=== PATIENT | female | born 1975 | race African-American/Black ===

== ENCOUNTER 2016-12-04 12:18 | Emergency (ER) | payer MEDICAID ==
[~2016-12-04] VITALS: Wt 70.3 kg
[~2016-12-04 12:18] MED LIST: AMOXICILLIN500 MG PO; Amitriptyline H10 MG PO; BENTYL10 MG PO; BETIMOL 10 ML10 M1 OP; BLOCADREN5 MG PO; CELEBREX200 MG PO; CIPRO T; CIPROFLOXACIN500 MG PO; CLEOCIN HCL150 MG PO; CLEOCIN150 MG PO; CLONAZEPAM0.5 M1 PO; CYMBALTA30 MG PO; DAYPRO600 M1 PO; DOXYCYCLINE HY100 M3 PO; DOXYCYCLINE100 MG PO; FLAGYL500 MG PO; FLEXERIL10 MG PO; HYDROCODONE BIT1 T11 PO; LAMICTAL ODT50 MG MM; LIDODERM5% TP; LOMOTIL 0.025 M1 TAB PO; MEDROL DOSEPAK4 MG PO; METHADONE5 MG PO; MOTRIN800 MG PO; MS CONTIN30 MG PO; NEURONTIN300 MG PO; NEURONTIN600 MG PO; NORCO 325 MG-51 TAB PO; NORCO 7.5-3251 EACH PO; NUCYNTA100 MG PO; PAXIL CR25 MG PO; PAXIL20 MG PO; PERCOCET 325 MG1 TA5 PO; PREDNISONE10 MG PO; PRILOSEC20 MG PO; PROAIR HFA8.5 GM INH; TIMOLOL MALEATE5 MG PO; VICODIN 500 MG-1 TAB PO; VICODIN ES 7501 TA1 PO; VICODIN ES 7501 TAB PO; VICODIN1 TAB PO; VITAMIN D2000 IU PO; VOLTAREN11 TP; Vicodin 5/500 505 MG PO; ZOFRAN ODT8 MG PO
[2016-12-04] MEDS ORDERED: BACLOFEN20 M1 PO (12:24)
[2016-12-04] MEDS ORDERED: NEURONTIN100 MG PO (12:24)
[2016-12-04 12:29] VITALS: BP 129/93
[2016-12-04 13:26] LABS: BASO % 0.2 % (0.0-1.0); EOS # 0.1 10*3/uL (0.0-0.4); EOS % 0.7 % (1.0-4.0); IG # 0.1 10*3/uL (0.0-0.1); LYMPH # 3.8 10*3/uL (1.3-4.4); LYMPH % 31.3 % (27.0-41.0); MEAN CELL VOLUME 83.5 fl (81.0-99.0); MEAN CORPUSCULAR HGB 27.8 pg (27.0-31.0); MEAN CORPUSCULAR HGB CONC 33.3 g/dl (33.0-37.0); MEAN PLATELET VOLUME 8.8 fl (9.6-12.3); MONO # 0.7 10*3/uL (0.1-1.0); MONO % 5.9 % (3.0-9.0); NEUT # 7.5 10*3/uL (2.3-7.9); NEUT % 61.5 % (47.0-73.0); PLATELET COUNT AUTOMATED 338 10*3/uL (130-400); RED BLOOD COUNT 5.75 10*6/uL (4.10-5.10); RED CELL DISTRI WIDTH 13.1 % (0-14.5); WHITE BLOOD COUNT 12.2 10*3/uL (4.8-10.8)
[2016-12-04 13:38] LABS: BUN 9 mg/dl (7-24); CARBON DIOXIDE 26 mmol/L (21-32); CHLORIDE 100 mmol/L (98-107); EST GLOM FILT AFRICAN AMERICAN > 60 ml/min; GLUCOSE 121 mg/dL (65-99); POTASSIUM 3.4 mmol/L (3.5-5.1); SODIUM 135 mmol/L (136-145)
[2016-12-04 14:07] LABS: BILIRUBIN NEGATIVE (NEGATIVE); BLOOD TRACE-INTACT (NEGATIVE); CLARITY CLEAR (CLEAR); COLOR YELLOW (YELLOW); GLUCOSE NEGATIVE (NEGATIVE); KETONE NEGATIVE (NEGATIVE); LEUKO ESTERASE NEGATIVE (NEGATIVE); NITRITE NEGATIVE (NEGATIVE); PROTEIN NEGATIVE (NEGATIVE); SPECIFIC GRAVITY <= 1.005 (1.005-1.030); UROBILINOGEN 0.2 E.U./dl (0.2-1.0)
[2016-12-04 14:16] LABS: URINE AMPHETAMINES < 1000 (1000ng/ml); URINE BARBITURATES < 200 (200ng/ml); URINE COCAINE < 300 (300ng/ml)
[2016-12-04 14:29] LABS: RBC 0-2 rbc/hpf (0-2); URINE REFLEX COMMENT NO (NO); WBC 0-2 wbc/hpf (0-5)
== END 2016-12-04 21:40 | disposition short-term general hospital (02) ==
LOC: ED 12:18
PROVIDERS: Registered Nurse
DX: R45.851 Suicidal ideations (principal); Z79.899 Other long term (current) drug therapy; F17.200 Nicotine dependence, unspecified, uncomplicated; Z88.2 Allergy status to sulfonamides

== ENCOUNTER → 2016-12-16 | Outpatient (CLI) | payer MEDICAID ==
[~2016-12-16] MED LIST changes: +BACLOFEN20 M1 PO; +NEURONTIN100 MG PO
[2016-12-16 12:16] LABS: HEMATOCRIT 39.9 % (37.0-47.0); HEMOGLOBIN 13.2 g/dl (12.0-16.0); MEAN CELL VOLUME 84.5 fl (81.0-99.0); MEAN CORPUSCULAR HGB CONC 33.1 g/dl (33.0-37.0); MEAN PLATELET VOLUME 9.2 fl (9.6-12.3); NUCLEATED RED BLOOD CELL 0.1 % (0.0-0.0); PLATELET COUNT AUTOMATED 315 10*3/uL (130-400); RED BLOOD COUNT 4.72 10*6/uL (4.10-5.10); RED CELL DISTRI WIDTH 13.2 % (0-14.5); WHITE BLOOD COUNT 14.9 10*3/uL (4.8-10.8)
[2016-12-16 12:40] LABS: ALBUMIN 3.4 gm/dl (3.1-4.5); ALKALINE PHOSPHATASE 75 U/L (45-117); BILIRUBIN, TOTAL 0.2 mg/dl (0.2-1.0); BUN 11 mg/dl (7-24); CARBON DIOXIDE 24 mmol/L (21-32); CHLORIDE 106 mmol/L (98-107); CHOLESTEROL 165 mg/dL (<200); EST GLOM FILT AFRICAN AMERICAN > 60 ml/min; GLUCOSE 97 mg/dL (65-99); HDL CHOLESTEROL 63 mg/dl (40-60); LDL CHOLESTEROL 72 mg/dL (9-159); SGOT/AST 9 IU/L (3-35); SGPT/ALT 18 U/L (12-78); SODIUM 141 mmol/L (136-145); TOTAL PROTEIN 6.8 gm/dL (6.4-8.2); TRIGLYCERIDES 148 mg/dl (<150); VLDL CHOLESTEROL 30 mg/dL (6-40)
[2016-12-16 12:45] LABS: LYMPHOCYTE # 3.7 10*3/uL (1.3-4.4); METAMYELOCYTES 1 % (0-0); MONOCYTE # 0.3 10*3/uL (0.1-1.0); MYELOCYTES 1 % (0-0); NEUTROPHIL # 10.6 10*3/uL (2.3-7.9); NEUTROPHILS 71 % (47-73); TOTAL CELLS COUNTED 100 #CELLS
[2016-12-16 12:46] LABS: PLATELET SUFFICIENCY NORMAL (NORMAL)
== END | disposition home or self-care (01) ==
LOC: LAB 11:15
PROVIDERS: Internal Medicine
DX: I10 Essential (primary) hypertension (principal); I47.1 Supraventricular tachycardia; E78.2 Mixed hyperlipidemia

== ENCOUNTER → 2016-12-27 | Outpatient (CLI) | payer MEDICAID ==
[2016-12-27 17:15] LABS: FREE T4 0.79 ng/dl (0.76-1.46)
== END | disposition home or self-care (01) ==
LOC: LAB 16:00 → US 16:00
PROVIDERS: Internal Medicine
DX: E03.9 Hypothyroidism, unspecified (principal)

== ENCOUNTER → 2017-01-08 | Outpatient (CLI) | payer OTHER ==
[2017-01-08 11:40] LABS: BASO % 0.3 % (0.0-1.0); EOS # 0.1 10*3/uL (0.0-0.4); EOS % 1.3 % (1.0-4.0); HEMATOCRIT 45.1 % (37.0-47.0); HEMOGLOBIN 14.8 g/dl (12.0-16.0); IG # 0.1 10*3/uL (0.0-0.1); LYMPH # 3.9 10*3/uL (1.3-4.4); LYMPH % 39.3 % (27.0-41.0); MEAN CELL VOLUME 84.6 fl (81.0-99.0); MEAN CORPUSCULAR HGB 27.8 pg (27.0-31.0); MEAN CORPUSCULAR HGB CONC 32.8 g/dl (33.0-37.0); MEAN PLATELET VOLUME 9.1 fl (9.6-12.3); MONO # 0.8 10*3/uL (0.1-1.0); MONO % 7.6 % (3.0-9.0); NEUT % 50.4 % (47.0-73.0); PLATELET COUNT AUTOMATED 350 10*3/uL (130-400); RED BLOOD COUNT 5.33 10*6/uL (4.10-5.10); RED CELL DISTRI WIDTH 14.1 % (0-14.5); WHITE BLOOD COUNT 9.9 10*3/uL (4.8-10.8)
== END | disposition home or self-care (01) ==
LOC: LAB 11:01
PROVIDERS: Internal Medicine
DX: I10 Essential (primary) hypertension (principal); D72.823 Leukemoid reaction

== ENCOUNTER → 2017-04-03 | Outpatient (CLI) | payer OTHER | END | disposition home or self-care (01) | LOC: CARD 09:00 | DX: R00.0 Tachycardia, unspecified (principal) ==

== ENCOUNTER 2017-09-11 12:30 | Emergency (ER) | payer OTHER ==
[~2017-09-11] VITALS: Ht 167.6 cm; Wt 69.4 kg
[2017-09-11] MEDS ORDERED: INDERAL XL80 MG PO (12:36)
[2017-09-11] MEDS ORDERED: SYMB160 INH (12:37)
[2017-09-11] MEDS ORDERED: VITAMIN D-32000 UNIT PO (12:37)
[2017-09-11 12:38] VITALS: BP 112/66
[2017-09-11] MEDS ORDERED: MOBIC15 MG PO (12:39)
[2017-09-11] MEDS ORDERED: NORCO 5-325 TA1 EACH PO (15:08)
[2017-09-11] MEDS ORDERED: ZOFRAN ODT4 MG SL (15:17)
== END 2017-09-11 15:30 | disposition home or self-care (01) ==
LOC: ED 12:30
DX: S82.892A Other fracture of left lower leg, initial encounter for closed fracture (principal); F17.200 Nicotine dependence, unspecified, uncomplicated; Z88.2 Allergy status to sulfonamides; Z79.899 Other long term (current) drug therapy; W18.39XA Other fall on same level, initial encounter; Y93.89 Activity, other specified; Y92.89 Other specified places as the place of occurrence of the external cause; Y99.8 Other external cause status

== ENCOUNTER 2018-02-28 19:38 | Emergency (ER) | payer OTHER ==
[~2018-02-28] VITALS: Ht 167.6 cm; Wt 74.4 kg
[~2018-02-28 19:38] MED LIST changes: +INDERAL XL80 MG PO; +MOBIC15 MG PO; +NORCO 5-325 TA1 EACH PO; +SYMB160 INH; +VITAMIN D-32000 UNIT PO; +ZOFRAN ODT4 MG SL
[2018-02-28 20:11] LABS: BASO # 0.1 10*3/uL (0.0-0.1); BASO % 0.7 % (0.0-1.0); EOS # 0.7 10*3/uL (0.0-0.4); EOS % 5.5 % (1.0-4.0); HEMATOCRIT 44.7 % (37.0-47.0); HEMOGLOBIN 14.3 g/dl (12.0-16.0); LYMPH # 3.8 10*3/uL (1.3-4.4); LYMPH % 30.9 % (27.0-41.0); MEAN CORPUSCULAR HGB 27.8 pg (27.0-31.0); MEAN PLATELET VOLUME 9.4 fl (9.6-12.3); MONO # 0.8 10*3/uL (0.1-1.0); MONO % 6.1 % (3.0-9.0); NEUT # 6.8 10*3/uL (2.3-7.9); NEUT % 55.4 % (47.0-73.0); PLATELET COUNT AUTOMATED 258 10*3/uL (130-400); RED BLOOD COUNT 5.14 10*6/uL (4.10-5.10); RED CELL DISTRI WIDTH 13.9 % (0-14.5); WHITE BLOOD COUNT 12.3 10*3/uL (4.8-10.8)
[2018-02-28 20:21] LABS: ACT PARTIAL THROMBO TIME 20.5 SECONDS (20.8-31.5); INTERNATIONAL NORM RATIO 0.9 (2.0-3.5)
[2018-02-28 20:30] LABS: ALBUMIN 3.5 gm/dl (3.1-4.5); ALKALINE PHOSPHATASE 91 U/L (45-117); BUN 13 mg/dl (7-24); CHLORIDE 110 mmol/L (98-107); CREATININE 0.93 mg/dL (0.55-1.02); POTASSIUM 3.5 mmol/L (3.5-5.1); SGOT/AST 12 IU/L (3-35); SGPT/ALT 21 U/L (12-78); SODIUM 144 mmol/L (136-145); TOTAL PROTEIN 7.6 gm/dL (6.4-8.2)
[2018-02-28 20:32] LABS: BETA-HCG, QUANT < 1.0 mIU/mL (1-3); TROPONIN I < 0.015 ng/ml (<0.045)
[2018-02-28 21:29] VITALS: BP 128/88
== END 2018-02-28 23:12 | disposition home or self-care (01) ==
LOC: ED 19:38
PROVIDERS: Student in an Organized Health Care Education/Training Program
DX: I47.1 Supraventricular tachycardia (principal); Z88.2 Allergy status to sulfonamides; Z79.899 Other long term (current) drug therapy

== ENCOUNTER → 2018-03-12 | Outpatient (CLI) | payer OTHER | END | disposition home or self-care (01) | LOC: RAD 14:01 | DX: M43.27 Fusion of spine, lumbosacral region (principal); M96.1 Postlaminectomy syndrome, not elsewhere classified ==

== ENCOUNTER → 2018-04-09 | Outpatient (CLI) | payer OTHER ==
[2018-04-09 09:39] LABS: BUN 12 mg/dl (7-24); CHLORIDE 102 mmol/L (98-107); CREATININE 0.83 mg/dL (0.55-1.02); POTASSIUM 3.9 mmol/L (3.5-5.1); SODIUM 138 mmol/L (136-145)
[2018-04-09 09:46] LABS: FREE T4 0.99 ng/dl (0.76-1.46)
[2018-04-10 07:05] LABS: DHEA SULFATE 47.3 ug/dL (57.3-279.2); PROGESTERONE 004317 8.4 ng/mL (.); PROLACTIN 004465 17.7 ng/mL (4.8-23.3)
[2018-04-11 01:05] LABS: INSULIN-LIKE GROWTH FACTOR-1 183 ng/mL (62-204)
[2018-04-12 01:03] LABS: TESTOSTERONE FREE, (DIRECT) 4.2 pg/mL (0.0-4.2)
== END | disposition home or self-care (01) ==
LOC: LAB 08:28
PROVIDERS: Internal Medicine
DX: E55.9 Vitamin D deficiency, unspecified (principal); E22.9 Hyperfunction of pituitary gland, unspecified; E23.7 Disorder of pituitary gland, unspecified; L65.9 Nonscarring hair loss, unspecified

== ENCOUNTER → 2018-07-20 | Outpatient (CLI) | payer OTHER | END | disposition home or self-care (01) | LOC: WOUNDCARE 02:16 | DX: L73.2 Hidradenitis suppurativa (principal); F32.9 Major depressive disorder, single episode, unspecified; F17.290 Nicotine dependence, other tobacco product, uncomplicated ==

== ENCOUNTER → 2018-07-28 | Outpatient (CLI) | payer OTHER | END | disposition home or self-care (01) | LOC: WOUNDCARE 01:29 | DX: L73.2 Hidradenitis suppurativa (principal); F32.9 Major depressive disorder, single episode, unspecified; F17.290 Nicotine dependence, other tobacco product, uncomplicated ==

== ENCOUNTER → 2019-02-15 | Outpatient (CLI) | payer OTHER ==
[2019-02-15 11:58] LABS: BUN 13 mg/dl (7-24); CHLORIDE 106 mmol/L (98-107); CREATININE 0.75 mg/dL (0.55-1.02); POTASSIUM 3.9 mmol/L (3.5-5.1); SODIUM 139 mmol/L (136-145)
[2019-02-16 07:05] LABS: PROLACTIN 004465 15.2 ng/mL (4.8-23.3)
== END | disposition home or self-care (01) ==
LOC: LAB 11:10
PROVIDERS: Internal Medicine
DX: E55.9 Vitamin D deficiency, unspecified (principal); E61.2 Magnesium deficiency; E23.7 Disorder of pituitary gland, unspecified; L65.9 Nonscarring hair loss, unspecified; E22.9 Hyperfunction of pituitary gland, unspecified

== ENCOUNTER → 2019-07-07 | Outpatient (CLI) | payer OTHER ==
[2019-07-07 09:33] LABS: BUN 14 mg/dl (7-24); CHLORIDE 106 mmol/L (98-107); POTASSIUM 3.7 mmol/L (3.5-5.1); SODIUM 138 mmol/L (136-145)
[2019-07-07 09:44] LABS: FREE T4 0.99 ng/dl (0.76-1.46)
[2019-07-08 06:06] LABS: PROLACTIN 004465 11.1 ng/mL (4.8-23.3)
== END | disposition home or self-care (01) ==
LOC: LAB 08:19
PROVIDERS: Internal Medicine
DX: E61.2 Magnesium deficiency (principal); E55.9 Vitamin D deficiency, unspecified; E22.9 Hyperfunction of pituitary gland, unspecified; E23.7 Disorder of pituitary gland, unspecified; L65.9 Nonscarring hair loss, unspecified

== ENCOUNTER → 2019-08-13 | Outpatient (CLI) | payer OTHER | END | disposition home or self-care (01) | LOC: RAD 07-19 09:30 | DX: Z13.820 Encounter for screening for osteoporosis (principal); Z78.0 Asymptomatic menopausal state ==

== ENCOUNTER → 2019-10-19 | Outpatient (CLI) | payer OTHER | END | disposition home or self-care (01) | LOC: US 14:00 → LAB 14:06 | DX: R92.2 Inconclusive mammogram (principal); L73.2 Hidradenitis suppurativa ==

== ENCOUNTER → 2019-10-20 | Outpatient (CLI) | payer OTHER ==
[2019-10-23 06:11] LABS: TB1 Ag VALUE 0.03 IU/mL (.)
== END | disposition home or self-care (01) ==
LOC: LAB 15:03
PROVIDERS: Dermatology
DX: L73.2 Hidradenitis suppurativa (principal); Z51.81 Encounter for therapeutic drug level monitoring

== ENCOUNTER → 2019-12-30 | Outpatient (CLI) | payer OTHER ==
[~2019-12-30] MED LIST changes: -BACLOFEN20 M1 PO; +BACLOFEN5 MG PO; +BEVESPI AEROS10.7 GM INH; +BUTRANS1 EAC1 TD; +DOXEPIN HCL100 MG PO; +HUMIRA CRO40 MG/0.8 SQ; +MAGNESIUM400 M1 PO; +PROPRANOLOL HCL40 M1 PO; -VITAMIN D-32000 UNIT PO; +VITAMIN D35000 UNIT PO; +ZYRTEC10 M3 PO
== END | disposition home or self-care (01) ==
LOC: CARD 12-21 12:00
DX: R06.02 Shortness of breath (principal)